=== PATIENT | male | born 1990 | race Caucasian/White ===

== ENCOUNTER 2018-10-12 04:15 | Emergency (ER) | payer OTHER ==
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
[2018-10-12] MEDS ORDERED: LIDOCAINE/PRILOCAINE 5 GM TUBE TP ONE ×2 (04:23→04:30)
[2018-10-12] MEDS ORDERED: NS(*) 0.9% 1000 ML BAG 1,000 ML IV ONE (04:30)
[2018-10-12] MEDS ORDERED: fentaNYL CITR 100 MCG/2 ML AMP IVP ONE ×2 (04:30→06:25)
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
[2018-10-12] MEDS ORDERED: cefTRIAXone 1 GM VIAL IVP ONE (06:25)
[2018-10-12] MEDS ORDERED: APAP/HYDROCODONE 325/5 TAB PO ONE (06:25)
[2018-10-12] MEDS ORDERED: ACET/HYDROC 5/325MG TH ER ONLY 2 TAB/BOTTLE PO ONE (06:25)
[2018-10-12] MEDS ORDERED: LOR5/325 PO (06:35)
[2018-10-12] MEDS ORDERED: CEPH500C24 PO (06:35)
[2018-10-12 07:00] VITALS: BP 113/58
== END 2018-10-12 07:27 | disposition home or self-care (01) ==
LOC: ER 04:24
DX: S90.812A Abrasion, left foot, initial encounter (principal); S70.02XA Contusion of left hip, initial encounter; S16.1XXA Strain of muscle, fascia and tendon at neck level, initial encounter
CPT/HCPCS: 71045; 72125; 73502; 73630; 96361; 96374; 96375; 99284; J0696; J3010; J7030; L0172